=== PATIENT | female | born 1960 | race Caucasian/White ===

== ENCOUNTER → 2020-09-11 01:54 | Outpatient (CLI) | payer OTHER, SELFPAY ==
[2020-09-11 18:16] LABS: SARS-CoV-2 RNA PCR Negative
== END ==
PROVIDERS: PCP Family Medicine; Visit Provider Internal Medicine Cardiovascular Disease
DX: Z01.812 Encounter for preprocedural laboratory examination (principal); Z20.822 Contact with and (suspected) exposure to COVID-19
CPT/HCPCS: C9803; U0003; U0005

== ENCOUNTER 2020-09-12 01:39 | Day surgery (SDC) | payer OTHER, SELFPAY ==
[2020-09-11 14:56] VITALS: BMI 35.4
[2020-09-12] VITALS (8 sets, daily range): BP systolic 115–171; BP diastolic 68–102; PULSE 50–70; RESP 14–20; TEMP 36.3; O2SAT 94–100; BMI 35.6
--- NOTE | 2020-09-12 07:51 | ECG_ITS ---
Measurements Intervals [place] Rate: 68 P: [place]: 0 QRS: 41 QRSD: 109 T: 74 QT: 453 QTc: 484 Interpretive Statements ATRIAL FLUTTER BASELINE WANDER- III, AVL, AVF ABNORMAL ECG Electronically Signed On 09-12-2020 7:59:38 CDT by El Love D.O.
--- NOTE | 2020-09-12 08:12 | WPDANESEPP ---
Anes - Eval Pre Procedure Procedure: Operation Date: 09/12/20 09:00 Proposed Procedures p Electrical Cardioversion - El Love, Date/Time: 09/12/20 08:12 Surgeon: arely Pre Op Diagnosis: proximal a-fib Patient Data Age: 60 Gender: F Height: 1.73 m Weight: 106.2 kg Last Vital Signs Temp 36.3 C L 09/12/20 08:00 Pulse 70 09/12/20 08:00 Resp 18 09/12/20 08:00 BP 171/101 H 09/12/20 08:00 Pulse Ox 97 09/12/20 08:00 Allergies Allergy/AdvReac Type Severity Reaction Status Date / Time No Known Allergies Allergy Unknown Verified 09/11/20 14:50 Home Medications Medication Instructions Recorded Confirmed Type omega-3 fatty acids 1,000 mg 1,000 mg PO DAILY 04/22/19 09/11/20 History capsule warfarin 5 mg tablet See Rx Instructions .ROUTE 03/31/20 09/11/20 Rx .COMPLEX #45 tablet atorvastatin 80 mg tablet See Rx Instructions .ROUTE 05/17/20 09/11/20 Rx .COMPLEX #30 tablet sotalol 120 mg tablet See Rx Instructions .ROUTE 06/17/20 09/11/20 Rx .COMPLEX #60 tablet Laboratory Tests 09/12/20 08:01 Sodium Pending Potassium Pending Chloride Pending Carbon Dioxide Pending Anion Gap Pending BUN Pending Creatinine Pending Estim Creat Clear Calc Pending Estimated GFR Pending Glucose Pending Calcium Pending Magnesium Pending Patient hx anesthesia problems: none Family hx anesthesia problems: none PMFSH Past Medical History Medical History Dyslipidemia Essential hypertension KODY on CPAP PAF (paroxysmal atrial fibrillation) Unspecified atrial flutter Surgical History Surgical History History of mitral valve repair History of parathyroidectomy History of tubal ligation Family History Family History Mother Family history of cataracts Father Family history of Parkinson's disease Family history of heart disease in male family member before age 55 Acute myocardial infarction Other Family history of cardiovascular disease Family history of malignant neoplasm Social History Social History Smoking status: Never smoker Alcohol intake: current Exam Day of Procedure 09/12/20 08:12
[2020-09-12 08:18] LABS: Anion Gap 9 mmol/L (8-16); Blood Urea Nitrogen 16 mg/dL (7-17); Carbon Dioxide 25 mmol/L (22-30); Chloride 109 mmol/L (98-107); Estimated CRCL calculation 82 ml/min; Estimated Glomerular Filt Rate > 60; Glucose 103 mg/dL (65-105); Potassium 4.2 mmol/L (3.4-5.0); Sodium 143 mmol/L (137-145)
--- NOTE | 2020-09-12 08:58 | WPDANESEPPF ---
Anes - Initial Pre Proc Eval Procedure: Operation Date: 09/12/20 09:00 Proposed Procedures p Electrical Cardioversion - El Love DO Date/Time: 09/12/20 08:58 Surgeon: El Love DO Pre Op Diagnosis: proximal a-fib Patient Data Age: 60 Gender: F Height: 1.73 m Weight: 106.2 kg Last Vital Signs Temp 36.3 C L 09/12/20 08:00 Pulse 70 09/12/20 08:00 Resp 18 09/12/20 08:00 BP 171/101 H 09/12/20 08:00 Pulse Ox 97 09/12/20 08:00 Allergies Allergy/AdvReac Type Severity Reaction Status Date / Time No Known Allergies Allergy Unknown Verified 09/11/20 14:50 Home Medications Medication Instructions Recorded Confirmed Type omega-3 fatty acids 1,000 mg 1,000 mg PO DAILY 04/22/19 09/11/20 History capsule warfarin 5 mg tablet See Rx Instructions .ROUTE 03/31/20 09/11/20 Rx .COMPLEX #45 tablet atorvastatin 80 mg tablet See Rx Instructions .ROUTE 05/17/20 09/11/20 Rx .COMPLEX #30 tablet sotalol 120 mg tablet See Rx Instructions .ROUTE 06/17/20 09/11/20 Rx .COMPLEX #60 tablet Laboratory Tests 09/12/20 08:01 Sodium 143 mmol/L mmol/L (137-145) Potassium 4.2 mmol/L mmol/L (3.4-5.0) Chloride 109 mmol/L H mmol/L (98-107) Carbon Dioxide 25 mmol/L mmol/L (22-30) Anion Gap 9 mmol/L mmol/L (8-16) BUN 16 mg/dL mg/dL (7-17) Creatinine 0.80 mg/dL mg/dL (0.7-1.0) Estim Creat Clear Calc 82 ml/min ml/min Estimated GFR > 60 (59 - ) Glucose 103 mg/dL mg/dL (65-105) Calcium 9.0 mg/dL mg/dL (8.4-10.2) Magnesium 2.0 mg/dL mg/dL (1.6-2.3) Patient hx anesthesia problems: none Family hx anesthesia problems: none PMFSH Past Medical History Medical History Dyslipidemia Essential hypertension KODY on CPAP PAF (paroxysmal atrial fibrillation) Unspecified atrial flutter Surgical History Surgical History History of mitral valve repair History of parathyroidectomy History of tubal ligation Family History Family History Mother Family history of cataracts Father Family history of Parkinson's disease Family history of heart disease in male family member before age 55 Acute myocardial infarction Other Family history of cardiovascular disease Family history of malignant neoplasm Social History Social History Smoking status: Never smoker Alcohol intake: current Anes - Eval Final PreProcedure Day of Procedure 09/12/20 08:58 Patient weight: obese Heart: irregular rhythm Lungs: clear to auscultation Airway: Mallampati scale class III Neurological: alert and oriented Last oral intake: >/= 8 hours ASA classification: III Emergent: no Anesthetic plan: proceed Anesthesia type and monitoring: general GIVS and standard monitoring Informed Consent: The patient's anesthetic plan and its attendant risks and benefits were discussed with the patient/family/POA. Questions were solicited and answers provided to the satisfaction of the patient/family/POA.
--- NOTE | 2020-09-12 09:15 | ECG_ITS ---
Measurements Intervals [place] Rate: 51 P: 49 ID: [id number] QRS: 38 QRSD: 106 T: 59 QT: 521 QTc: 481 Interpretive Statements SINUS BRADYCARDIA ATRIAL PREMATURE COMPLEX PROLONGED QT INTERVAL ABNORMAL ECG Electronically Signed On 09-12-2020 9:37:54 CDT by El Love D.O.
--- NOTE | 2020-09-12 09:19 | WPDCARDVER ---
Cardioversion Cardioversion Date of procedure: 09/12/20 Procedure: Direct current cardioversion Pre-op diagnosis: PAF Post-op diagnosis: same Description of procedure: Risks/benefits/alternative treatment to cardioversion discussed with patient and she is agreeable for procedure. HR 75 bpm in atrial fib/flutter. BP 167/105 mmHg. Defibrillator pads placed anterior and posterior chest. Patient had general anesthesia as per anesthesiology. Cardioversion set at 200 J biphasic synchronized energy and restored sinus rhythm with one shock. No immediate complications, tolerated procedure well. HR at 50 bpm and BP 110/70 mmHg. Sedation: As per anesthesiology Conclusion: 1. Successful DC cardioversion from atrial fib/flutter to Sinus rhythm. 2. F/U with me in 1-2 weeks.
== END 2020-09-12 10:27 | disposition home or self-care (01) ==
PROVIDERS: PCP Family Medicine; Visit Provider Internal Medicine Cardiovascular Disease
PROC: 5A2204Z Restoration of Cardiac Rhythm, Single (ICD-10-PCS; principal; 2020-09-12 09:00)
DX: I48.0 Paroxysmal atrial fibrillation (principal); Z79.01 Long term (current) use of anticoagulants; I10 Essential (primary) hypertension; E78.5 Hyperlipidemia, unspecified; G47.33 Obstructive sleep apnea (adult) (pediatric); R00.1 Bradycardia, unspecified; E66.9 Obesity, unspecified; Z68.35 Body mass index [BMI] 35.0-35.9, adult
CPT/HCPCS: 36415; 80048; 83735; 92960; 93005; J2704; J7030

== ENCOUNTER 2023-10-06 08:05 | Emergency (ER) | payer OTHER, SELFPAY ==
--- NOTE | ~2023-10-06 | XR_ITS ---
EXAMINATION: XR ankle RT min 3V DATE: 10/06/2023 08:39 INDICATION: Right ankle pain, swelling and bruising one week post twisting injury TECHNIQUE: Anteroposterior, oblique, mortise, and lateral views of the right ankle were obtained. COMPARISON: None. FINDINGS: Alignment is normal. Corticated heterotopic ossicles along the medial malleolus likely sequela of chr onic deltoid ligament sprain. No acute fracture. Joint mild osteoarthritis at the right ankle with mi ld anterior predominant nonuniform joint space narrowing and small marginal osteophytes along the ant erior tibial plafond. Joint spaces appear relatively preserved. Soft tissue swelling about the medial aspect of the distal lower leg, ankle and hindfoot. IMPRESSION: 1. Heterotopic ossicles along the medial malleolus suggestive of chronic deltoid ligament sprain. No acute osseous abnormality. Reviewed, dictated and finalized at location A. IMPRESSION: 1. Heterotopic ossicles along the medial malleolus suggestive of chronic deltoi d ligament sprain. No acute osseous abnormality.
[2023-10-06 08:18] VITALS: BP 136/83; PULSE 84; RESP 16; TEMP 36.9; O2SAT 99
--- NOTE | 2023-10-06 08:41 | ED.LOWEXIN ---
HPI - Extremity Injury (Lower) General Chief Complaint: Extremity Injury, Lower Stated Complaint: right ankle swollen,hurts Time Seen by Provider: 10/06/23 08:24 Source: patient and RN notes reviewed Mode of arrival: ambulatory Limitations: no limitations History of Present Illness HPI Narrative: Patient presents today complaining of right ankle pain. She stepped wrong in her basement 1 week ago and twisted her ankle. She has been ambulatory since the injury. Denies numbness or tingling. Currently rates her pain 3/10, which does increase slightly with weight-bearing. She has been applying ice and wrapping the ankle with an Erick wrap, which does provide some mild relief. Related Data Home Medications Medication Instructions Recorded Confirmed omega-3 fatty acids 1,000 mg 1,000 mg PO DAILY 04/22/19 10/06/23 capsule (Fish Oil Concentrate) amlodipine 2.5 mg tablet 2.5 mg PO DAILY 06/13/23 10/06/23 Allergies Allergy/AdvReac Type Severity Reaction Status Date / Time No Known Allergies Allergy Unknown Verified 10/06/23 08:24 Review of Systems Review of Systems: CONSTITUTIONAL: Denies body aches, fever, chills, or sweats. EYES: Denies visual changes, redness, or discharge. ENT: Denies rhinorrhea, congestion, sore throat, or otalgia. CARDIOVASCULAR: Denies chest pain, palpitations, or edema. RESPIRATORY: Denies cough or dyspnea. GASTROINTESTINAL: Denies abdominal pain, nausea, vomiting, or diarrhea. GENITOURINARY: Denies dysuria or hematuria. SKIN: Denies rash, itching, or wounds. MUSCULOSKELETAL: Denies back pain, or myalgia.+ right ankle pain NEUROLOGIC: Denies headache, numbness, tingling, or weakness. PSYCH: Denies depression or anxiety. [facility] Past Medical History Medical History Adult BMI 34.0-34.9 kg/sq m Dyslipidemia Essential hypertension KODY on CPAP PAF (paroxysmal atrial fibrillation) Unspecified atrial flutter Surgical History Surgical History History of mitral valve repair History of parathyroidectomy History of tubal ligation Family History Family History Mother Family history of cataracts Father Family history of Parkinson's disease Family history of heart disease in male family member before age 55 Acute myocardial infarction Other Family history of cardiovascular disease Family history of malignant neoplasm Social History Social History Smoking status: Former smoker Alcohol intake: current Comments At time of signature, I have reviewed and agree with nursing past medical, surgical, social and family history unless otherwise noted. Please see nursing chart for further information. There is no relevant family history pertinent to the presenting complaint Exam Narrative: GENERAL: Well-appearing, well-nourished, and in no acute distress. HEAD: Normocephalic, atraumatic. EYES: EOMI. No redness or drainage. Conjunctivae normal. ENT: Mucous membranes pink and moist. NECK: Normal AROM. CHEST: No respiratory distress. EXTREMITIES: Right ankle: Mild edema about the ankle. No tenderness to the medial or lateral malleolus. Dependent ecchymosis to the medial foot. Patient has a firm lump measuring approximately 3 cm round to the distal tibia, proximal to the malleolus that is tender to palpation. Distal sensation intact. Capillary refill normal. Pedal pulse normal. Full P ROM of the ankle without pain.. SKIN: Warm, dry, no rash. Capillary refill normal. Normal skin turgor. NEURO: No focal deficits. Alert and oriented x3. Gait steady. PSYCH: Normal affect. No signs of depression or anxiety. Course Course Level of Care: Express Care Visit Vital Signs Vital signs: Vital Signs Temperature 98.5 F 07
== END 2023-10-06 09:16 | disposition home or self-care (01) ==
PROVIDERS: Emergency Provider Nurse Practitioner; PCP Family Medicine
DX: S99.911A Unspecified injury of right ankle, initial encounter (principal); X50.9XXA Other and unspecified overexertion or strenuous movements or postures, initial encounter; E78.5 Hyperlipidemia, unspecified; I10 Essential (primary) hypertension; G47.33 Obstructive sleep apnea (adult) (pediatric); I48.0 Paroxysmal atrial fibrillation; Z90.89 Acquired absence of other organs
CPT/HCPCS: 73610; 99213; G0463

== ENCOUNTER 2024-07-16 00:25 | Day surgery (SDC) | payer MEDICARE, SELFPAY ==
[2024-07-08 09:11] VITALS: BMI 33.9
--- NOTE | 2024-07-08 09:21 | SUR.PREOP ---
Spoke with patient in regards to her Warfarin. She verbalized understanding that her last dose is to be taken on 07/11/24 and the endoscopist will inform her when to resume after her procedure is done.
--- OUTSIDE RECORDS SUMMARY | 2024-07-16 00:30 | XMS_ITS | Referral Summary ---
Author Organization [facility] [place] [address] Address [address] [place] [address] Care Team Providers Care Communications Strategist Name Role Phone Barry Knight MD Primary Care Provider + [phone] Allergies No known active allergies Medications aspirin 81 mg tablet Take 81 mg by mouth daily. Active warfarin (COUMADIN) 5 mg tablet Take one tablet daily as directed. 30 tablet 07/28/2017 Active sotalol (BETAPACE) 80 mg tablet TAKE ONE TABLET BY MOUTH EVERY 12 HOURS 60 tablet 2 12/12/2017 Active metoprolol (LOPRESSOR) 25 mg tablet Take 1 tablet (25 mg total) by mouth 2 (two) times a day. 120 tablet 2 12/17/2017 Active Active Problems Problem Noted Date Diagnosed Date Encounter for monitoring sotalol therapy 018 History of cardiac radiofrequency ablation 03/03 KODY treated with BiPAP 03/03/2017 Chronic anticoagulation 03/03/2017 Palpitations 02/19/2016 Overview (06/20/2016): Palpitations Atrioventricular crista re-entry tachycardia 07/2015 Overview (06/20/2016): AVNRT (AV crista re-entry tachycardia) Atrial flutter 02/19/2016 Overview (06/20/2016): Atrial flutter, paroxysmal Obesity with body mass index 30 or greater 02/18 Overview (06/20/2016): Obesity (BMI 30-39.9) History of open heart surgery 02/20/2015 Overview (06/20/2016): S/P ablation of atrial flutter S/P mitral valve repair 02/20/2015 Overview (06/20/2016): S/P mitral valve repair Benign hypertension 02/20/2015 Overview (06/20/2016): HTN (hypertension), benign Paroxysmal atrial fibrillation 02/20/2015 Overview (06/20/2016): Paroxysmal atrial fibrillation Simple obesity 02/20/2015 Overview (06/20/2016): Obesity due to excess calories, unspecified obesity severity Shortness of breath 01/01/2012 Social History Tobacco Use Types Packs/Day Years Used Date Smoking Tobacco: Never Smokeless Tobacco: Never Alcohol Use Standard Drinks/Week Comments Yes 0 (1 standard drink = 0.6 oz pur e alcohol) Comments Unknown Sex and Gender Information Value Date Recorded Sex Assigned at Not on file Legal Sex Female 10:50 AM SENIOR ENGINEERING TECH Gender Identity Not on file Sexual Orientation Not on file Last Filed Vital Signs Vital Sign Reading Time Taken Comments Blood Pressure 138/84 04/14/2017 8:15 AM SENIOR ENGINEERING TECH Pulse 51 04/14/2017 8:15 AM SENIOR ENGINEERING TECH Temperature - - Respiratory Rate - - Oxygen Saturation 95% 04/14/2017 8:15 AM SENIOR ENGINEERING TECH Inhaled Oxygen Concentration - - Weight 105.2 kg (232 lb) 04/14/2017 8:15 AM SENIOR ENGINEERING TECH Height 172.7 cm (5' 8 ) 04/14/2017 8:15 AM SENIOR ENGINEERING TECH Body Mass Index 35.28 04/14/2017 8:15 AM SENIOR ENGINEERING TECH Plan of Treatment Not on file Insurance [facility] Care Teams Communications Strategist Relationship Specialty Start Date End Date Barry Knight MD PCP - General 10/08/12
--- OUTSIDE RECORDS SUMMARY | 2024-07-16 00:30 | XMS_ITS | Clinical Summary ---
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: TUBAL LIGATION Bilateral tubal ligation TONSILLECTOMY Tonsillectomy Medical History Medical History Date Comments Hypertension Hypertension Hx Other Medical dyslipidemia Hx Other Medical a-fib Hx Other Medical Valvular Heart Disease 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 Hx Other Medical severe LA enlar gement Hx Other Medical Arrhythmias PSV T Atrial fibrillation (HCC) Valvular disease Family History Medical History Relation Name Comments Coronary artery disease Father 2 Lorin nary Artery Disease; Other Mother 2 healthy; Relation Name Status Comments Father 1 Alive Father 2 Mother 1 Alive Mother 2 Social History Tobacco Use Types Packs/Day Years Used Date Smoking Tobacco: Never Smokeless Tobacco: Never Alcohol Use Standard Drinks/Week Comments Yes 0 (1 standard drink = 0.6 oz pur e alcohol) Comments Unknown Sex and Gender Information Value Date Recorded Sex Assigned at Not on file Legal Sex Female 10:50 AM READING EFFICIENCY COURSE DIRECTOR Gender Identity Not on file Sexual Orientation Not on file Obstetrics History Last Filed Vital Signs Vital Sign Reading Time Taken Comments Blood Pressure 138/84 04/14/2017 8:15 AM READING EFFICIENCY COURSE DIRECTOR Pulse 51 04/14/2017 8:15 AM READING EFFICIENCY COURSE DIRECTOR Temperature - - Respiratory Rate - - Oxygen Saturation 95% 04/14/2017 8:15 AM READING EFFICIENCY COURSE DIRECTOR Inhaled Oxygen Concentration - - Weight 105.2 kg (232 lb) 04/14/2017 8:15 AM READING EFFICIENCY COURSE DIRECTOR Height 172.7 cm (5' 8 ) 04/14/2017 8:15 AM READING EFFICIENCY COURSE DIRECTOR Body Mass Index 35.28 04/14/2017 8:15 AM READING EFFICIENCY COURSE DIRECTOR Plan of Treatment Not on file Insurance [facility] Care Teams Concert Promoter Relationship Specialty Start Date End Date Barry Knight MD PCP - General 10/08/12
--- OUTSIDE RECORDS SUMMARY | 2024-07-16 00:30 | XMS_ITS | Data Portability ---
Author Organization [facility] [address], Main Office Address [address] [place] [address] Assessment No assessment recorded. Plan of Treatment Reminders Order Date Submit Date Provider Last Modified By Organization Details Last Modified Time Details Appointments None recorded. Lab PT/INR 2023 024 [email or web address] [facility], [address], [place], [address], 4 12:12:32 PT/INR 2023 024 [email or web address] [facility], [address], [place], [address], 4 08:33:43 PT/INR 2023 024 [email or web address] [facility], [address], [place], [address], 4 10:32:06 PT/INR 2023 024 NITESH [facility], [address], [place], [address], 4 04:29:07 PT/INR 2023 024 [email or web address] 2 [facility], [address], [place], [address], 4 08:03:11 PT/INR 2023 024 [email or web address] [facility], [address], [place], [address], 4 08:30:43 PT/INR 2023 024 [email or web address] [facility], [address], [place], [address], 4 08:06:43 PT/INR 2023 024 NITESH [facility], [address], [place], [address], 4 17:40:34 PT/INR 2023 024 [email or web address] [facility], [address], [place], [address], 4 08:56:32 PT/INR 2023 024 [email or web address] [facility], [address], [place], [address], 4 08:21:47 PT/INR 2023 024 [email or web address] 2 [facility], [address], [place], [address], 4 08:01:46 PT/INR 2023 024 [email or web address] [facility], [address], [place], [address], 4 08:46:21 PT/INR 2023 024 [email or web address] [facility], [address], [place], [address], 4 08:04:17 PT/INR 2023 024 [email or web address] [facility], [address], [place], [address], 4 08:22:17 Referral cardiologis t referral - saw Dr. Love in November , due back in May . [facility] Please call patient to schedule appointment . 2023 024 [email or web address] El Love , [address] [facility] [address], [place], [address], 4 09:01:18 gastroenter ologist referral - Has never had a colonoscopy . Please eval and treat . Thank you. Please call patient to schedule appointment . 2023 024 [email or web address] Graciela Hair MD, [address] [facility], [address], [place], [address], 4 09:00:38 Procedures colonoscopy screening (PROC) 2023 024 [email or web address] Not available 08:18:20 Surgeries None recorded. Imaging None recorded. Medication Orders Sutab 1.479-0.188 -0.225 gram tablet 2023 [email or web address] [place] [address] [facility], [address] [place], [address], 4 16:06:40 amlodipine 2.5 mg tablet 2023 024 [facility], [address] [place], [address], 4 10:39:21 Patient TargetsNo targets recorded. Patient Instructions Encounter Date Encounter Id Patient Instructions Last Modified By Organization Details Last Modified Time 05/14/2023 [id number] [place] TAB [email or web address] Not available 14:54:13 PT NEEDS A SCREENING COLON . R/O POLYP . RECOMMEND A COLONOSOPY . Risks benefits and complications were explained to the pt. ( BLEEDING PERFORATION , INFECTION , ). PT VERBALIZES UNDERSTANDING AND IS WILLING TO PROCEDE . 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 Please eval and treat . Thank you. Please call patient to schedule appointment. 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 Love in November , due back in May . [facility] Please call patient to schedule appointment. Referring Physician: Rafita Vallejo [facility], Encounter Date: 04/08/2023 Results Created Date Observation Date Name Description Value Unit Range Abnormal Flag Note LastModifiedBy Organization Detail LastModifiedTime 04/11/19 24 04/11/2023 PROTH ROMBI N TIME- INR INR 2.4 high Refer ence Range 0.9-1 .1 Moder ate-i ntens ity Warfa rin Thera py 2.0-3 .0 Highe r-int ensit y Warfa rin Thera py 3.0-4 .0 Not Available [employer] [place] [address] [place], [address], 04/11/2023 17:40:34 04/11/19 24 04/11/2023 PROTH ROMBI N TIME- INR PT 24.1 sec 9.0-11 .5 high For addit ional infor jasper wesley e refer to http: //[facility] aliya clark.ham stdia gnost ics.c om/fa q/FAQ 104 (This link is being provi ded for infor javon marinelli/ jadyn washburn purpo ses only. ) Not Available [employer] [address] [address] [place], [address], 04/11/2023 17:40:34 06/23/19 24 06/23/2023 PROTH ROMBI N TIME- INR INR 2.0 high Refer ence Range 0.9-1 .1 Moder ate-i ntens ity Warfa rin Thera py 2.0-3 .0 Highe r-int ensit y Warfa rin Thera py 3.0-4 .0 Not Available [facility] [address] [address] [place], [address], 06/23/2023 19:48:36 06/23/19 24 06/23/2023 PROTH ROMBI N TIME- INR PT 19.9 sec 9.0-11 .5 high For addit ional infor jasper wesley e refer to http: //[facility] aliya carmichael gnost ics.c om/fa q/FAQ 104 (This link is being provi ded for infor matio nal/ educa kamron l purpo ses only. ) Not Available [facility] [address] [address] [place], [address], 06/23/2023 19:48:36 07/21/19 24 07/22/2023 PROTH ROMBI N TIME- INR INR 2.3 high Refer ence Range 0.9-1 .1 Moder ate-i ntens ity Warfa rin Thera py 2.0-3 .0 Highe r-int ensit y Warfa rin Thera py 3.0-4 .0 Not Available [facility] [address] [address] [place], [address], 07/22/2023 04:29:07 07/21/19 24 07/22/2023 PROTH ROMBI N TIME- INR PT 23.3 sec 9.0-11 .5 high For addit ional infor jasper wesley e refer to http: //[facility] aliya cummingsia gnost ics.c om/fa q/FAQ 104 (This link is being provi ded for infor matio nal/ educa kamron l purpo ses only. ) Not Available [facility] [address] [address] [place], [address], 07/22/2023 04:29:07 10/06/19 24 10/06/2023 XR, ankle , 3 or more view No observ ation record ed. [place] [address], [place], [address], 10/06/2023 11:18:06 Result Notes None recorded. Problems Name Problem SNOMED Code Status Onset Date Resolution Date Notes Provider Name and Address Organization Details Recorded Time Breast lump 29762614 Active Not Available [facility] 3 05:56:03 Atrial fibrillation 35207803 Active 2023 LILLIAN Duvall [address], [address], [place], [address] , [facility] 4 09:55:50 Screening for malignant neoplasm of colon Active 2023 LILLIAN Duvall [address], [address], [place], [address] , [facility] 4 09:58:18 Administration of influenza vaccine Active 2023 LILLIAN Duvall [address], [address], [place], [address] , [facility] 4 10:02:06 Essential hypertension 64832048 Active 2023 LILLIAN Duvall [address], [address], [place], [address] , [facility] 4 10:38:29 Glaucoma 48520397 Active 2023 Aura Gonzales RN [facility], [employer] [facility] 4 15:42:57 Problem Notes None recorded. Procedures Surgical History None recorded. Imaging Results Imaging Date Name Status LastModified by Organiz ation Details LastModified Time 10/06/2023 XR, ankle, 3 or more view completed [place] [address], [place], [address], 10/06/2023 11:18:06 Procedure Notes None recorded. Medical Equipment None Reported. Allergies No known drug allergies Medications Name Sig Start Date Stop Date Status Note LastModified by Organization Details LastModified Time atorvastati n 40 mg tablet TAKE 1 TABLET BY MOUTH ONCE DAILY active Not Available Not Available No t Available atorvastati n 80 mg tablet 04/08 completed Not Available Not Available Not Available metoprolol succinate ER 50 mg tablet,exte nded release 24 hr 50 MG ORALLY DAILY active Not Available Not Available No t Available valacyclovi r 1 gram tablet 04/08 completed Not Available Not Available Not Available sotalol 80 mg tablet 04/08 completed Not Available Not Available Not Available amlodipine 2.5 mg tablet TAKE 1 TABLET BY MOUTH ONCE DAILY IN THE MORNING 2024 active Not Available Not Available Not Avai lable sotalol 120 mg tablet TAKE ONE TABLET BY MOUTH TWICE A DAY 04/08 completed Not Available Not Available Not Available warfarin 5 mg tablet TAKE 1 AND 1/2 TABLETS BY MOUTH ON FRIDAY AND 1 TABLET THE REST OF THE WEEK active Not Available Not Available No t Available metoprolol succinate ER 25 mg tablet,exte nded release 24 hr TAKE 1 TABLET BY MOUTH EVERY DAY 04/08 completed Not Available Not Available Not Available cefdinir 300 mg capsule 12/29 completed Not Available Not Available Not Available metoprolol tartrate 25 mg tablet 12/29 completed Not Available Not Available Not Available aspirin 12/29 completed Not Available Not Available Not Available Fluarix Quad 9965-8482 (PF) 60 mcg (15 mcg x 4)/0.5 mL IM syringe active Not Available Not Available N ot Available Sutab 1.479-0.188 -0.225 gram tablet USE DIRECTED active Not Available Not Available No t Available Vitals Date Recorded Body weight Body temperature Heart rate Oxygen saturation Oxygen saturation in Arterial blood by Pulse oximetry Systolic blood pressure Diastolic blood pressure Provider Name and Address Organization Details Last Updated DateTime 4 59945.7 7 g 97.3 [degF] 92 /min 96 % 96 % 162 mm[Hg] 84 mm[Hg] Nancy Dodd MA [facility] [address] [facility] 4 09:48:41 Date Recorded Body height Body weight Heart rate Oxygen saturation Oxygen saturation in Arterial blood by Pulse oximetry Systolic blood pressure Diastolic blood pressure Provider Name and Address Organization Details Last Updated DateTime 4 172.72 cm 32710.7 7 g 90 /min 97 % 97 % 130 mm[Hg] 76 mm[Hg] IRIS Augustin [facility] [employer] [facility] 4 14:27:23 Date Recorded Systolic blood pressure Diastolic blood pressure Provider Name and Address Organization Details Last Updated DateTime 04/15/2023 132 mm[Hg] 88 mm[Hg] Nancy Dodd MA [employer] 04/15/2023 10:22:27 Date Recorded Systolic blood pressure Diastolic blood pressure Provider Name and Address Organization Details Last Updated DateTime 04/22/2023 132 mm[Hg] 78 mm[Hg] Nancy Dodd MA [facility] [employer] [address] [employer] 04/22/2023 16:23:36 Social History None recorded. Functional Status None recorded. Mental Status None recorded. Family History Nothing Reported. Medical History No medical history recorded. Gynecological HistoryNo gynecological history recorded. Obstetrics History GPAL:G 0 P 0 0 0 0 Immunizations Vaccine Type Date Status Note Provider Nam e and Address Organization Details Recorded Time Influenza, split virus, quadrivalent, PF 04/08/2023 completed LILLIAN Duvall [address] [place] [address], [place] [address], [place], [address], [facility] [employer] [facility] [address] [facility] 04/11/2023 22:47:54 Past Encounters Encounter ID Performer Location Encounter Start Date Encounter Closed Date Diagnosis/Indication Diagnosis SNOMED-CT Code Diagnosis ICD10 Code Diagnosis Note [id number] Nicole Bustamante MD [facility] [address] [place] [address] 04/08/2023 09:27:53 04/08/2023 10:10:48 Atrial fibrillation 07102004 I48.91 Screening for malignant neoplasm of colon 993682219 Z12.11 Administra tion of influenza vaccine 52221066 Z23 [id number] Nicole Bustamante MD [facility] [address] [place] [address] 04/15/2023 10:14:25 04/30/2023 04:08:12 Essential hypertension 43544486 I10 Atrial fibrillation 4943 6004 I48.91 [id number] Nicole Bustamante MD [facility] [address] [place] [address] 04/22/2023 10:12:47 04/30/2023 04:08:12 [id number] Graciela Hair MD [facility] [address] [facility] [address] [place] [address] 05/14/2023 14:25:22 05/14/2023 15:22:38 Screening for malignant neoplasm of colon 458033030 Z12.11 Health Concerns Section Related Observation LastModified by Organization Detai ls LastModified Time None Recorded Concern Status LastModified by Organization Details LastModified Time None Recorded Advance Directives Directive None Recorded Payers Encounter Date Sequence Insurance Name Policy Number Policy Prado Covered Member ID Prado Member ID Guarantor Name 04/08/2023 1 [employer] Maria M E Genesee [id number] Maria M Genesee 04/15/2023 1 [employer] ILONEX Maria M E Genesee [id number] Maria M Genesee 04/22/2023 1 [employer] ILONEX Maria M E Genesee [id number] Maria M Genesee 05/14/2023 1 [employer]EX Maria M E Genesee [id number] Maria M Genesee Notes Date Note Type Note Provider Name and Address Organization Details Recorded Time 04/08/2023 text/html Has atrial fib; they have cardioverted her twice . lasted for awhile but , then ...... LILLIAN Duvall [address] [facility], [facility] [address], [place], [address], [facility] 04/15/2023 10:43:18 04/15/2023 text/html atrial fib. has been cardio-verted twice , lasted for awhile LILLIAN Duvall [address] [facility], [address], [place], [address], [employer] 04/21/2023 16:47:02 05/14/2023 text/html PT WAS SEEN IN T HE OFFICE TODAY FOR COLON SCREENING . PT DENIES ABD PAIN /N/V/D/BLEEDING /WT LOSS. FIRST COLON . Graciela Hair MD [address] [facility], [facility] [address], [place], [address], [facility] 05/14/2023 14:54:52 OBGyn Episode No OBEpisode recorded.
[2024-07-16 09:30] VITALS: BP 145/93; PULSE 83; RESP 20; TEMP 36.1; O2SAT 97
--- NOTE | 2024-07-16 09:35 | WPDANESEPPF ---
Anes - Initial Pre Proc Eval Procedure: Operation Date: 07/16/24 11:00 Proposed Procedures p Screening Colonoscopy - Vishal Michel MD Date/Time: 07/16/24 09:35 Surgeon: Vishal Michel MD Pre Op Diagnosis: Screening Patient Data Age: 64 Gender: F Height: 1.73 m Weight: 100.2 kg Last Vital Signs Temp 36.1 C L 07/16/24 09:30 Pulse 83 07/16/24 09:30 Resp 20 07/16/24 09:30 BP 145/93 H 07/16/24 09:30 Pulse Ox 97 07/16/24 09:30 O2 Del Method Room Air 07/16/24 09:30 Allergies Allergy/AdvReac Type Severity Reaction Status Date / Time No Known Allergies Allergy Unknown Verified 07/16/24 09:29 Home Medications ?Medication ?Instructions ?Recorded ?Confirmed ?Type omega-3 fatty acids 1,000 mg 1,000 mg PO DAILY 04/22/19 07/16/24 History capsule (Fish Oil Concentrate) amlodipine 2.5 mg tablet 2.5 mg PO DAILY 06/13/23 07/16/24 History metoprolol succinate 50 mg See Rx Instructions .Route 11/12/23 07/16/24 Rx tablet,extended release 24 hr .COMPLEX #90 tabs atorvastatin 40 mg tablet See Rx Instructions .Route 04/28/24 07/16/24 Rx .COMPLEX #90 tabs warfarin 5 mg tablet See Rx Instructions .Route 07/01/24 07/16/24 Rx .COMPLEX #96 tabs Patient hx anesthesia problems: none Family hx anesthesia problems: none Results Review: All pre-operative results and documents have been reviewed as part of the pre-operative evaluation. [facility] Past Medical History Medical History (Updated 04/26/24 @ 16:51 by Ivy Robertson APRN) Adult BMI 34.0-34.9 kg/sq m Unspecified atrial flutter Dyslipidemia Essential hypertension KODY on CPAP PAF (paroxysmal atrial fibrillation) Surgical History Surgical History History of parathyroidectomy History of tubal ligation History of mitral valve repair Family History Family History Mother Family history of cataracts Father Family history of Parkinson's disease Family history of heart disease in male family member before age 55 Acute myocardial infarction Other Family history of cardiovascular disease Family history of malignant neoplasm Social History Social History Smoking status: Former smoker Alcohol intake: never Substance use: never Substance use type: does not use Living arrangements: alone Anes - Eval Final PreProcedure Day of Procedure 07/16/24 09:35 Patient weight: obese Heart: regular rate and rhythm Lungs: clear to auscultation Airway: Mallampati scale class III Neurological: alert and oriented Last oral intake: >/= 8 hours ASA classification: III Emergent: no Anesthetic plan: proceed Anesthesia type and monitoring: general GIVS and standard monitoring Results Review: All pre-operative results and documents have been reviewed as part of the pre-operative evaluation. Informed Consent: The patient's anesthetic plan and its attendant risks and benefits were discussed with the patient/family/POA. Questions were solicited and answers provided to the satisfaction of the patient/family/POA.
[2024-07-16] MEDS: LACTATED RINGERS 1,000 ML 150 ML IV CONT (09:39)
--- NOTE | 2024-07-16 10:08 | PM.HPGS ---
History of Present Illness History of Present Illness Consent: Risks, benefits, and alternatives have been discussed and questions answered. Patient agrees to proceed with procedure. Chief complaint: Screening Narrative: Maria M Cobos is a 64 year old female here for first screening colonoscopy Review of Systems Review of Systems: All systems reviewed & are unremarkable except as noted in HPI and below PMFSH Past Medical History Medical History (Updated 07/16/24 @ 10:08 by Vishal Michel MD) Colon cancer screening Adult BMI 34.0-34.9 kg/sq m Unspecified atrial flutter Dyslipidemia Essential hypertension KODY on CPAP PAF (paroxysmal atrial fibrillation) Surgical History Surgical History History of parathyroidectomy History of tubal ligation History of mitral valve repair Family History Family History Mother Family history of cataracts Father Family history of Parkinson's disease Family history of heart disease in male family member before age 55 Acute myocardial infarction Other Family history of cardiovascular disease Family history of malignant neoplasm Social History Social History Smoking status: Former smoker Alcohol intake: never Substance use: never Substance use type: does not use Living arrangements: alone Meds Home Medications and Allergies Home Medications ?Medication ?Instructions ?Recorded ?Confirmed ?Type omega-3 fatty acids 1,000 mg 1,000 mg PO DAILY 04/22/19 07/16/24 History capsule (Fish Oil Concentrate) amlodipine 2.5 mg tablet 2.5 mg PO DAILY 06/13/23 07/16/24 History metoprolol succinate 50 mg See Rx Instructions .Route 11/12/23 07/16/24 Rx tablet,extended release 24 hr .COMPLEX #90 tabs atorvastatin 40 mg tablet See Rx Instructions .Route 04/28/24 07/16/24 Rx .COMPLEX #90 tabs warfarin 5 mg tablet See Rx Instructions .Route 07/01/24 07/16/24 Rx .COMPLEX #96 tabs Allergies Allergy/AdvReac Type Severity Reaction Status Date / Time No Known Allergies Allergy Unknown Verified 07/16/24 09:29 Vital Signs Vital Signs - 24 hr 07/16/24 09:30 Temperature 97 F L Pulse Rate 83 Respiratory Rate 20 Blood Pressure 145/93 H Pulse Oximetry 97 Oxygen Delivery Room Air Exam Const: General: comfortable and no acute distress HENMT: Face/Nose/Sinus: Normal nares present Eyes: General: appearance normal, both eyes and all related structures Neck: Neck: no JVD Resp: Auscultation: clear to auscultation bilaterally Cardio: Rate: regular rate Rhythm: regular rhythm GI: Inspection: non-distended GI Palp: Yes Soft to palpation Skin: General skin exam: normal color Neuro: General: gait normal Speech: normal speech Extrem: General: normal to inspection Psych: Mental Status: mental status grossly normal Assessment and Plan Assessment and plan (1) Colon cancer screening: Code(s): Z12.11 - Encounter for screening for malignant neoplasm of colon Status: Acute Assessment and Plan: colonoscopy
[2024-07-16 10:26] VITALS: BP 110/72; PULSE 77; RESP 18; O2SAT 97
[2024-07-16 10:36] VITALS: BP 103/73; PULSE 79; RESP 16; O2SAT 97
[2024-07-16 10:46] VITALS: BP 118/82; PULSE 70; RESP 16; O2SAT 97
== END 2024-07-16 10:54 | disposition home or self-care (01) ==
PROVIDERS: PCP Nurse Practitioner Family; Referring Provider Nurse Practitioner Family; Visit Provider Internal Medicine Gastroenterology
PROC: 0DJD8ZZ Inspection of Lower Intestinal Tract, Via Natural or Artificial Opening Endoscopic (ICD-10-PCS; CPT 45378; principal; 2024-07-16 11:00)
DX: Z12.11 Encounter for screening for malignant neoplasm of colon (principal); K63.5 Polyp of colon; K62.1 Rectal polyp; K64.8 Other hemorrhoids; K57.30 Diverticulosis of large intestine without perforation or abscess without bleeding; E78.5 Hyperlipidemia, unspecified; I10 Essential (primary) hypertension; G47.33 Obstructive sleep apnea (adult) (pediatric); I48.0 Paroxysmal atrial fibrillation; I48.92 Unspecified atrial flutter; E66.9 Obesity, unspecified; Z68.33 Body mass index [BMI] 33.0-33.9, adult; Z79.01 Long term (current) use of anticoagulants; Z99.89 Dependence on other enabling machines and devices; Z98.890 Other specified postprocedural states; Z98.51 Tubal ligation status; Z87.891 Personal history of nicotine dependence; Z86.79 Personal history of other diseases of the circulatory system; Z80.9 Family history of malignant neoplasm, unspecified; Z82.49 Family history of ischemic heart disease and other diseases of the circulatory system
CPT/HCPCS: 45385; 88305; J2003; J2704; J7120

== ENCOUNTER 2024-11-26 13:19 | Outpatient (CLI) | payer MEDICARE, SELFPAY ==
--- NOTE | ~2024-11-26 | DEXA_ITS ---
Bone Density Report Name: ALEJANDRA BEAL Age: 64 Sex: Female Ethnicity: White Date of : 1960 Indication: postmenopausal; screening for osteoporosis; height loss; Referring Provider: DANI YORK Study: Bone densitometry was performed. Exam Date: November 26, 2024 Accession number: [id number] Bone Density: Region BMD T-score Z-score Classification AP Spine(L1-L4) 1.486 4.0 5.8 Normal Femoral Neck (Left) 1.182 3.0 4.5 Normal Total Hip (Left) 1.179 1.9 3.2 Normal Femoral Neck (Right) 1.134 2.6 4.1 Normal Total Hip (Right) 1.135 1.6 2.8 Normal Total Hip Mean 1.157 1.8 3.0 Normal World Health Organization criteria for BMD impression classify patients as: Normal (T-score at or above -1.0), Osteopenia (T-score between -1.0 and -2.5), or Osteoporosis (T-score at or below -2.5). 10-year Fracture Risk: FRAX not reported because: All T-scores for Spine Total, Hip Total, Femoral Neck at or above -1.0 Clinical Information Provided by Patient: Patient maximum height was 68 Menopause Age: 54 No regular weight bearing exercise Drinks caffeinated beverages Onset of menses at age 11 Number of children 4 Impression: The patient has normal bone mass. Discussion: LOW RISK OF FRACTURE; BONE DENSITY IS WELL ABOVE THE MINIMUM DESIRABLE LEVEL AND ABOVE AVERAGE FOR AGE AND SEX AT ALL SKELETAL SITES TESTED. This person's bone density is above expected limits for age and sex. This is rarely clinically significant, but should be pursued if there are significant musculoskeletal complaints. The patient should follow a healthful lifestyle (good nutrition with adequate calcium and vitamin D, and appropriate weight-bearing exercise). Follow-Up: Consider repeating this study in 5 years or sooner if there is some new clinical indication. Reported by: RITA on 11/26/2024 2:04:00 PM. Reviewed, dictated and finalized at location A.
--- NOTE | ~2024-11-26 | MM_ITS ---
EXAMINATION: MM screening miladys BI w garry HISTORY: Screening TECHNIQUE: Craniocaudal and mediolateral oblique 3-D tomosynthesis images were obtained and synthetic 2-D images were generated. CAD analysis was submitted and interpreted. COMPARISON: Mammogram 12/15/2018 BREAST PARENCHYMAL COMPOSITION: There are scattered areas of fibroglandular density. FINDINGS: There is no evidence of suspicious mass, calcification, or architectural distortion to suggest malignancy. There has been no suspicious interval change. IMPRESSION: 1. No mammographic evidence of malignancy. Recommend routine screening mammography in one year. BI-RADS Category 2: Benign finding(s) Reviewed, dictated and finalized at location Q. IMPRESSION: 1. No mammographic evidence of malignancy. Recommend routine screening mammogra phy in one year. BI-RADS Category 2: Benign finding(s)
--- OUTSIDE RECORDS SUMMARY | 2024-11-26 14:07 | XMS_ITS | Clinical Summary ---
Author Organization 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
== END 2024-11-26 13:20 | disposition home or self-care (01) ==
LOC: ANHFOHIMG 13:21
PROVIDERS: PCP Nurse Practitioner Family; Visit Provider Nurse Practitioner Family
DX: Z12.31 Encounter for screening mammogram for malignant neoplasm of breast (principal); Z78.0 Asymptomatic menopausal state
CPT/HCPCS: 77063; 77067; 77080